=== PATIENT | male | born 1950 | race Caucasian/White ===

== ENCOUNTER 2017-10-01 10:23 | Outpatient (CLI) | payer MEDICARE ==
--- NOTE | 2017-10-01 11:18 | CT ---
CT PULMONARY LUNG SCAN: Date: 10/01/17 HISTORY: Nicotine dependence. Abnormality seen on x-ray. COMPARISON: Radiograph from 2016. FINDINGS: Lung screening specific (Lung-RADS): No suspicious pulmonary nodules requiring follow-up or immediat e action. Potentially significant incidentals (Lung-RADS Category S): No abnormalities requiring urgent additi onal evaluation. Pulmonary incidentals: There are scattered, sub-4 mm, pulmonary nodules. No pneumothorax. No effusio n. Other incidentals: There is moderate coronary arterial calcification of coronary arteries. No signif icant pericardial effusion. Upper abdomen evaluation limited due to extensive noise. Likely an old injury of the posterior right 4th rib with extensive periosteal new bone formation whic h appears chronic with remodeling. No thoracic spine compression fracture. There is a chronic appearing superior end plate compression d eformity at T4. IMPRESSION: 1. Lung-RADS Category 2: Benign appearance or behavior. A follow-up screening CT in 12 months recom mended. 2. Lung-RADS Category S: Negative. No new or significant potentially significant incidental finding s requiring urgent additional evaluation. POS: RUBINA
== END 2017-10-01 10:24 | disposition home or self-care (01) ==
LOC: CT 10:23
PROVIDERS: ATTEND Internal Medicine Sleep Medicine
DX: Z87.891 Personal history of nicotine dependence (principal)
CPT/HCPCS: G0297

== ENCOUNTER 2018-03-31 14:34 | Outpatient (CLI) | payer OTHER | END 2018-03-31 14:35 | disposition home or self-care (01) | LOC: DTY/OP 14:34 | PROVIDERS: ATTEND Surgery | DX: E66.01 Morbid (severe) obesity due to excess calories (principal) | CPT/HCPCS: 97802 ==

== ENCOUNTER 2018-04-14 00:15 | Outpatient (CLI) | payer MEDICARE ==
[2018-04-14 09:52] LABS: #Basophils 0.1 thou/uL (0.0-0.2); #Eosinphils 0.1 thou/uL (0.0-0.7); #Lymphocytes 2.6 thou/uL (1.20-3.40); #Monocytes 0.7 thou/uL (0.11-0.59); %Basophils 1.1 % (0.0-1.0); %Eosinophils 1.9 % (0.0-10.0); %Lymphocytes 34.7 % (21.0-51.0); %Monocytes 9.1 % (0.0-10.0); %Neutrophils 53.2 % (42.0-75.0); Mean Corpuscular HGB CONC 32.4 g/dL (32.0-36.0); Mean Corpuscular Hemoglobin 31.1 pg (27.0-31.0); Mean Platelet Volume 10.4 fL (7.4-10.4); Platelet Count 171 thou/uL (130-400); RBC Distribution Width 12.5 % (11.5-14.5); Red Blood Cell (RBC) Count 4.84 mill/uL (4.70-6.10); White Blood Cell (WBC) Count 7.5 thou/uL (4.8-10.8)
[2018-04-14 10:03] LABS: Hemoglobin A1c 8.9 % (4.0-6.0)
[2018-04-14 10:26] LABS: ALT (SGPT) 23 U/L (8-55); AST (SGOT) 14 U/L (5-34); Albumin 4.1 g/dL (3.4-4.8); Alkaline Phosphatase 76 U/L (40-150); Anion Gap 12 mmol/L (10-20); BUN (Urea Nitrogen) 30 mg/dL (8.4-25.7); Bilirubin, Direct 0.2 mg/dL (0.1-0.3); Bilirubin, Total 0.6 mg/dL (0.2-1.2); Calc. Creatinine Clearance 0 mL/min (70-130); Calcium 9.9 mg/dL (7.8-10.44); Carbon Dioxide 26 mmol/L (23-31); Chloride 102 mmol/L (98-107); Estimated GFR-MDRD 57; Globulin 2.9 g/dL (2.4-3.5); Glucose 197 mg/dL (80-115); Potassium 4.3 mmol/L (3.5-5.1); Sodium 136 mmol/L (136-145)
--- NOTE | 2018-04-14 10:51 | RAD ---
CHEST 2 VIEWS: HISTORY: PREOPERATIVE EXAM. COMPARISON: None. FINDINGS: Normal cardiac silhouette. The pulmonary vessels and hilum are normal. Costophrenic angles are javier r. Chronic changes, without consolidation or mass. No pneumothorax or osseous abnormalities. IMPRESSION: No acute cardiopulmonary process. POS: CET
== END 2018-04-14 00:16 | disposition home or self-care (01) ==
LOC: LABBT 00:15
PROVIDERS: ATTEND Surgery
DX: Z01.818 Encounter for other preprocedural examination (principal); E11.9 Type 2 diabetes mellitus without complications; I10 Essential (primary) hypertension; G47.30 Sleep apnea, unspecified
CPT/HCPCS: 71046; 80053; 80076; 83036; 85025; 93005; 93010

== ENCOUNTER 2018-04-14 08:00 | Inpatient (IN) | payer MEDICARE ==
[2018-04-14 08:34] VITALS: BMI 44.6
[2018-04-19] MEDS ORDERED: Heparin 5,000 UNITS/ML VIAL ONE (06:10)
[2018-04-19] MEDS ORDERED: Fentanyl 100 MCG/2 ML VIAL ONE ×4 (06:19→10:25)
[2018-04-19] MEDS ORDERED: Bupivacaine/Epinephrine 0.25% 30 ML VIAL ONE (07:06)
[2018-04-19] MEDS ORDERED: SUGAMMADEX SODIUM 500 MG/5 ML VIAL ONE (09:35)
[2018-04-19] MEDS ORDERED: Ondansetron HCl/PF 4 MG/2 ML Vial IVP PRN (10:03)
[2018-04-19] MEDS ORDERED: Promethazine HCl 25 MG/ML VIAL SLOW IVP PRN (10:03)
[2018-04-19] MEDS ORDERED: diphenhydrAMINE 50 MG/ML VIAL IM PRN (10:03)
[2018-04-19] MEDS ORDERED: Zolpidem Tartrate 5 MG TAB PO PRN (10:03)
[2018-04-19] MEDS ORDERED: diphenhydrAMINE 50 MG/ML VIAL IVP PRN ×2 (10:03→12:46)
[2018-04-19] MEDS ORDERED: fentaNYL Citrate/PF 2,000 MCG in Sodium Chloride 0.9% 60 ML IV PRN (10:03)
[2018-04-19] MEDS ORDERED: diphenhydrAMINE 25 MG CAP PO PRN (10:03)
[2018-04-19] MEDS ORDERED: Naloxone HCl 0.4 mg/ml Vial IV PRN (10:03)
[2018-04-19] MEDS ORDERED: Promethazine HCl 25 MG/ML VIAL IM PRN ×3 (10:03→12:46)
[2018-04-19] MEDS ORDERED: Morphine Sulfate 2 MG/ML SYRINGE SLOW IVP PRN (10:03)
[2018-04-19] MEDS ORDERED: Communication Order-Pharmacy FS SCH (10:15)
--- NOTE | 2018-04-19 11:41 | OP ---
DATE OF PROCEDURE: 04/19/2018 PREOPERATIVE DIAGNOSES: 1. Morbid obesity with a body mass index of 40. 2. Essential hypertension. 3. Obstructive sleep apnea. 4. Diabetes mellitus, type 2, on insulin. 5. Gastroesophageal reflux disease. POSTOPERATIVE DIAGNOSES: 1. Morbid obesity with a body mass index of 40. 2. Essential hypertension. 3. Obstructive sleep apnea. 4. Diabetes mellitus, type 2, on insulin. 5. Gastroesophageal reflux disease. PROCEDURES PERFORMED: 1. Laparoscopic sleeve gastrectomy with [place] staple line reinforcements and 38-[place] bougie. 2. Esophagogastroduodenoscopy. ANESTHESIA: General. ESTIMATED BLOOD LOSS: Minimal. COMPLICATIONS: None. FINDINGS: Normal postop EGD. DESCRIPTION OF PROCEDURE: The patient was taken to the operating room and laid supine on the table. After general anesthetic was obtained, the arms and legs were double strapped to bariatric table. The abdomen was shaved, prepped, and draped in a sterile fashion. Left subcostal 5 mm Optiview trocar was placed in usual fashion and high-flow pneumoperitoneum was obtained. There were multiple intraabdominal adhesions, so two ports were placed along the left lateral abdomen and these adhesions were taken down to facilitate placement of the other port. No injury to any intraabdominal structures. This was mostly sharp dissection of the scar tissue. So, two 12 mm ports were able to be placed in the upper abdomen and a 5 mm right subcostal port. A 5 mm incision was made at the xiphoid and Lyubov was used to raise the liver off the GE junction. The short gastrics were taken down in the mid body of stomach to left jimi of diaphragm. Left jimi, fundus of the stomach, and angle of His were completely dissected. Short gastrics were taken down to a distance of 5 cm proximal to the pylorus. OG tube was removed and 38 bougie was brought in and tip left in the antrum of the stomach. Multiple loads of the [place] stapling device used to perform the sleeve. The first was fired up at a distance 6 cm proximal to the pylorus, angled up towards the incisura. Multiple loads were then fired up along the bougie. Stomach was completely transected at the angle of His. Stomach was removed from the left abdominal incision. This fascial defect was closed using GraNee needle and 0 Vicryl tie. No bleeding on the staple line. The bougie was removed and then EGD scope was passed through esophagus, stomach, to the level of duodenum without obstruction. There was no stricture at the incisura. The EGD scope was used to decompress the stomach, it was pulled and removed. All port sites were infiltrated using local anesthetic. The other 12 mm port was closed using GraNee needle and 0 Vicryl tie as well. No intraabdominal bleeding. No damage to any intraabdominal structures. Lyubov was removed under direct visualization. Pneumoperitoneum was let down. The Vicryl was used to close the fascial defect for the 12 mm port sites. The incisions were irrigated and closed using 4-0 Monocryl and Dermabond. The patient was then returned to Recovery in stable condition. All instrument counts, needle counts, and lap counts are correct. Job ID: [id number]
[2018-04-19] MEDS ORDERED: Ondansetron PF 4 MG/2 ML Vial ONE (12:39)
[2018-04-19] MEDS ORDERED: Rocuronium Bromide 10 MG/ML (10ML VIAL) ONE (12:39)
[2018-04-19] MEDS ORDERED: ePHEDrine 50 MG/ML VIAL ONE (12:39)
[2018-04-19] MEDS ORDERED: Lidocaine 1% PF 5 ML VIAL ONE (12:39)
[2018-04-19] MEDS ORDERED: PROPOFOL 200 MG/20 ML VIAL ONE (12:39)
[2018-04-19] MEDS ORDERED: Hydrocodone-Acetamin 15 ML UDCUP PO PRN (12:46)
[2018-04-19] MEDS ORDERED: hydrALAZINE 20 MG/ML VIAL SLOW IVP PRN (12:46)
[2018-04-19] MEDS ORDERED: Dextrose 50% Abboject 50 ML SYRINGE SLOW IVP PRN (12:46)
[2018-04-19] MEDS ORDERED: Dextrose 5% in Water 1,000 ML IV PRN (12:46)
[2018-04-19] MEDS ORDERED: Ondansetron PF 4 MG/2 ML Vial IVP PRN (12:46)
[2018-04-19] MEDS: Sodium Chloride 0.9% 1,000 ML IV SCH (17:00)
[2018-04-19] MEDS: Ondansetron PF 4 MG/2 ML Vial IVP PRN (17:21)
[2018-04-19] MEDS: HumaLOG 300 UNITS/3 ML VIAL SC PRN (18:07)
[2018-04-19] MEDS: Acetaminophen 1,000 MG in Premix Bag 1 BAG IVPB SCH ×2 (19:39→20:08)
[2018-04-19] MEDS: Amlodipine 5 MG TAB PO SCH (20:10)
[2018-04-19] MEDS ORDERED: Spironolactone 25 MG TAB PO SCH (21:00)
[2018-04-20] MEDS: Sodium Chloride 0.9% 1,000 ML IV SCH (00:40)
[2018-04-20] MEDS: Acetaminophen 1,000 MG in Premix Bag 1 BAG IVPB SCH ×2 (01:36→08:46)
[2018-04-20 05:53] LABS: #Basophils 0.1 thou/uL (0.0-0.2); #Lymphocytes 1.8 thou/uL (1.20-3.40); #Monocytes 0.7 thou/uL (0.11-0.59); #Neutrophils 5.4 thou/uL (1.40-6.50); %Basophils 0.6 % (0.0-1.0); %Eosinophils 0.2 % (0.0-10.0); %Monocytes 9.3 % (0.0-10.0); %Neutrophils 67.8 % (42.0-75.0); Hemoglobin 13.4 g/dL (14.0-18.0); Mean Corpuscular HGB CONC 32.7 g/dL (32.0-36.0); Mean Corpuscular Hemoglobin 32.4 pg (27.0-31.0); Mean Corpuscular Volume 99.3 fL (78.0-98.0); Mean Platelet Volume 10.9 fL (7.4-10.4); Platelet Count 145 thou/uL (130-400); RBC Distribution Width 12.2 % (11.5-14.5); Red Blood Cell (RBC) Count 4.13 mill/uL (4.70-6.10)
[2018-04-20 06:11] LABS: Anion Gap 13 mmol/L (10-20); BUN (Urea Nitrogen) 20 mg/dL (8.4-25.7); Calc. Creatinine Clearance 109 mL/min (70-130); Calcium 9.3 mg/dL (7.8-10.44); Carbon Dioxide 28 mmol/L (23-31); Chloride 104 mmol/L (98-107); Estimated GFR-MDRD 64; Glucose 225 mg/dL (80-115); Potassium 4.2 mmol/L (3.5-5.1); Sodium 141 mmol/L (136-145)
[2018-04-20] MEDS: Ondansetron PF 4 MG/2 ML Vial IVP PRN (08:46)
[2018-04-20] MEDS: Amlodipine 5 MG TAB PO SCH (08:47)
[2018-04-20] MEDS ORDERED: Non-Formulary Item 1 EACH (Losartan Potassium [Losartan Potassium] 100 MG) PO SCH (09:00)
[2018-04-20] MEDS ORDERED: Pantoprazole 40 MG VIAL IVP SCH (09:00)
[2018-04-20] MEDS ORDERED: Losartan 25 MG TAB PO SCH (09:00)
[2018-04-20] MEDS ORDERED: Sodium Chloride 0.9% 1,000 ML IV SCH (09:21)
[2018-04-20] MEDS ORDERED: Acetaminophen 1,000 MG in Premix Bag 1 BAG IVPB PRN (09:21)
[2018-04-20] MEDS ORDERED: Acetaminophen 650 MG/20.3 ML UDCUP PO PRN (09:57)
[2018-04-20] MEDS: HumaLOG 300 UNITS/3 ML VIAL SC PRN (12:07)
[2018-04-20 15:46] VITALS: BP 131/70; TEMP 97.2
--- NOTE | 2018-04-20 16:20 | DIS ---
DATE OF ADMISSION: 04/19/2018 DATE OF DISCHARGE: 04/20/2018 ADMITTING DIAGNOSES: 1. Morbid obesity. 2. Sleep apnea. 3. Diabetes mellitus. 4. Hypertension. DISCHARGE DIAGNOSES: 1. Morbid obesity. 2. Sleep apnea. 3. Diabetes mellitus. 4. Hypertension. PROCEDURES PERFORMED: Laparoscopic sleeve by Dr. Nunez without complication. CONDITION ON DISCHARGE: Improved. STAFF: Jorge Luis Nunez MD HOSPITAL COURSE: On postop day #1, the patient had initially had some nausea, however, that improved throughout the day, especially after his [employer] was discontinued. In the afternoon, he is doing well. He is tolerating the clears. He is ambulating. He has minimal pain. He was discharged home. Job ID: [id number]
== END 2018-04-20 19:45 | disposition home or self-care (01) | DRG 621 ==
LOC: SURG A 04-19 05:55
PROVIDERS: ADMIT Surgery; ATTEND Surgery
PROC: 0DB64Z3 Excision of Stomach, Percutaneous Endoscopic Approach, Vertical (ICD-10-PCS; principal; 2018-04-19)
PROC: 0DJ08ZZ Inspection of Upper Intestinal Tract, Via Natural or Artificial Opening Endoscopic (ICD-10-PCS; 2018-04-19)
DX: E66.01 Morbid (severe) obesity due to excess calories (principal); E11.9 Type 2 diabetes mellitus without complications; I10 Essential (primary) hypertension; G47.33 Obstructive sleep apnea (adult) (pediatric); K21.9 Gastro-esophageal reflux disease without esophagitis; Z68.41 Body mass index [BMI] 40.0-44.9, adult
CPT/HCPCS: 36415; 36416; 80048; 85025; 88307; 88312; C9113; J0131; J1644; J2001; J2405; J2704; J3010; J3490; J7050

== ENCOUNTER 2018-11-23 19:30 | Outpatient (CLI) | payer MEDICARE | END 2018-11-23 19:31 | disposition home or self-care (01) | LOC: SLEEPLAB 19:30 | PROVIDERS: ATTEND Family Medicine | DX: G47.33 Obstructive sleep apnea (adult) (pediatric) (principal); E11.9 Type 2 diabetes mellitus without complications; I10 Essential (primary) hypertension | CPT/HCPCS: 95810 ==

== ENCOUNTER 2019-02-17 10:50 | Outpatient (CLI) | payer MEDICARE ==
--- NOTE | 2019-02-17 11:27 | ULT ---
ULTRASOUND SOFT TISSUE ABDOMINAL WALL: History: Abdominal wall mass. Comparison: None.. Findings: There is echogenic appearance of the mesh from the prior ventral hernia repair. No abnormal mass is a ppreciated. Impression: No abnormal mass appreciated. Follow-up CT abdomen and pelvis with contrast may be beneficial if clin ically warranted. Transcribed Date/Time: 02/17/2019 11:55 AM
== END 2019-02-17 10:51 | disposition home or self-care (01) ==
LOC: SCSULT 10:50
PROVIDERS: ATTEND Family Medicine
DX: R19.00 Intra-abdominal and pelvic swelling, mass and lump, unspecified site (principal)
CPT/HCPCS: 76705

== ENCOUNTER 2020-11-07 19:00 | Outpatient (CLI) | payer MEDICARE | END 2020-11-07 19:01 | disposition home or self-care (01) | LOC: SLEEPLAB 19:00 | PROVIDERS: ATTEND Family Medicine | DX: G47.33 Obstructive sleep apnea (adult) (pediatric) (principal); G47.10 Hypersomnia, unspecified; R06.83 Snoring; E66.9 Obesity, unspecified; Z68.32 Body mass index [BMI] 32.0-32.9, adult | CPT/HCPCS: 95811 ==

== ENCOUNTER 2022-01-22 09:24 | Outpatient (CLI) | payer MEDICARE, OTHER | END 2022-01-22 09:25 | disposition home or self-care (01) | LOC: SCSRAD 09:24 | PROVIDERS: ATTEND Family Medicine | DX: R07.9 Chest pain, unspecified (principal); R06.02 Shortness of breath; M54.6 Pain in thoracic spine; M54.50 Low back pain, unspecified; M47.816 Spondylosis without myelopathy or radiculopathy, lumbar region; M47.814 Spondylosis without myelopathy or radiculopathy, thoracic region | CPT/HCPCS: 71046; 72072; 72100 ==

== ENCOUNTER 2024-02-07 15:32 | Outpatient (CLI) | payer OTHER | END 2024-02-07 15:33 | disposition home or self-care (01) | LOC: ULT 15:32 | PROVIDERS: ATTEND Family Medicine | DX: M79.604 Pain in right leg (principal); I82.401 Acute embolism and thrombosis of unspecified deep veins of right lower extremity; R06.02 Shortness of breath ==

== ENCOUNTER 2024-02-07 17:12 | Inpatient (IN) | payer OTHER ==
[2024-02-07 17:55] LABS: #Basophils 0.06 10x3/uL (0.0-0.2); %Basophils 0.9 % (0.0-1.0); %Eosinophils 2.4 % (0.0-10.0); %Lymphocytes 29.9 % (21.0-51.0); %Neutrophils 59.2 % (42.0-75.0); Hematocrit 34.4 % (42.0-52.0); Hemoglobin 11.4 g/dL (14.0-18.0); Mean Corpuscular HGB CONC 33.1 g/dL (32.0-36.0); Mean Corpuscular Hemoglobin 31.3 pg (27.0-31.0); Mean Corpuscular Volume 94.5 fL (78.0-98.0); Mean Platelet Volume 11.9 fL (7.4-10.4); Platelet Count 224 10x3/uL (130-400); RBC Distribution Width 12.5 % (11.5-14.5); Red Blood Cell (RBC) Count 3.64 mill/uL (4.70-6.10)
[2024-02-07] MEDS ORDERED: Ketorolac Tromethamine 30 MG (1 mL) VIAL ONE (17:56)
[2024-02-07 18:09] LABS: ALT (SGPT) 14 U/L (8-55); AST (SGOT) 16 U/L (5-34); Albumin 3.7 g/dL (3.4-4.8); Alkaline Phosphatase 79 U/L (40-110); Anion Gap 13 mmol/L (10-20); BUN (Urea Nitrogen) 25 mg/dL (8.4-25.7); Bilirubin, Total 0.4 mg/dL (0.2-1.2); Calc. Creatinine Clearance 0 mL/min (70-130); Calcium 9.8 mg/dL (7.8-10.44); Carbon Dioxide 26 mmol/L (23-31); Chloride 105 mmol/L (98-107); Estimated GFR 62; Globulin 2.8 g/dL (2.4-3.5); Glucose 259 mg/dL (83-110); Magnesium 1.5 mg/dL (1.6-2.6); Potassium 4.4 mmol/L (3.5-5.1); Protein, Total 6.5 g/dL (5.8-8.1); Sodium 140 mmol/L (136-145)
[2024-02-07 18:11] LABS: Prothrombin Time 13.1 sec (12.0-14.7)
[2024-02-07 18:16] LABS: Troponin I Less than 0.010 ng/mL (< 0.028)
[2024-02-07] MEDS ORDERED: Heparin 5,000 UNITS/ML VIAL ONE (18:36)
[2024-02-07] MEDS ORDERED: Heparin 25,000 units/D5W 500 ML ONE (18:37)
[2024-02-07] MEDS ORDERED: Dextrose 5% in Water 1,000 ML IV PRN (20:29)
[2024-02-07] MEDS ORDERED: Glucagon 1 MG/ML KIT IM PRN (20:29)
[2024-02-07] MEDS ORDERED: Dextrose 50% Abboject 50 ML SYRINGE SLOW IVP PRN (20:29)
[2024-02-07] MEDS ORDERED: Insulin Lispro 100 UNIT/ML 10 ML VIAL SC PRN ×2 (20:29)
[2024-02-07] MEDS ORDERED: Heparin 10,000 UNITS/ 10 ML VIAL SLOW IVP SCH (20:45)
[2024-02-07] MEDS ORDERED: Heparin 25,000 units/D5W 500 ML IVPB SCH (20:45)
[2024-02-07 20:49] VITALS: BMI 34.1
[2024-02-07] MEDS: Acetaminophen 325 MG TAB PO PRN (21:32)
[2024-02-07] MEDS: Magnesium 2 GM/50 ML(in water) 2 GM in Premix 1 BAG IVPB SCH (22:26)
[2024-02-07] MEDS: traMADol HCl 50 MG TAB PO PRN (23:46)
[2024-02-08 01:31] LABS: PTT 227.4 sec (22.9-36.1)
[2024-02-08 04:30] LABS: #Basophils 0.06 10x3/uL (0.0-0.2); %Basophils 1.1 % (0.0-1.0); %Eosinophils 3.8 % (0.0-10.0); %Lymphocytes 40.9 % (21.0-51.0); %Monocytes 7.2 % (0.0-10.0); %Neutrophils 46.5 % (42.0-75.0); Hemoglobin 10.3 g/dL (14.0-18.0); Mean Corpuscular HGB CONC 33.2 g/dL (32.0-36.0); Mean Corpuscular Hemoglobin 31.5 pg (27.0-31.0); Mean Corpuscular Volume 94.8 fL (78.0-98.0); Mean Platelet Volume 12.5 fL (7.4-10.4); Platelet Count 180 10x3/uL (130-400); RBC Distribution Width 12.8 % (11.5-14.5); Red Blood Cell (RBC) Count 3.27 mill/uL (4.70-6.10)
[2024-02-08 04:47] LABS: Anion Gap 12 mmol/L (10-20); BUN (Urea Nitrogen) 21 mg/dL (8.4-25.7); Calc. Creatinine Clearance 92 mL/min (70-130); Calcium 9.3 mg/dL (7.8-10.44); Carbon Dioxide 24 mmol/L (23-31); Chloride 109 mmol/L (98-107); Estimated GFR 85; Glucose 139 mg/dL (83-110); Magnesium 1.8 mg/dL (1.6-2.6); Potassium 3.9 mmol/L (3.5-5.1); Sodium 141 mmol/L (136-145)
[2024-02-08 11:07] VITALS: TEMP 98.2
[2024-02-08] MEDS ORDERED: Non-Formulary Item 1 EACH (Esomeprazole Magnesium [Nexium Oral Suspension] 40 MG Suspdr.P PO SCH (12:09)
[2024-02-08] MEDS: Insulin Glargine 30 UNITS/0.3 ML VIAL SC SCH (12:50)
[2024-02-08] MEDS: Pantoprazole DR 40 MG TAB PO SCH (12:51)
[2024-02-08] MEDS: Non-Formulary Item 1 EACH (Insulin Glargine,Hum.Rec.Anlog [Lantus Solostar] 100 UNIT/ML P SQ SCH (13:54)
[2024-02-08] MEDS: Apixaban 5 MG TAB PO SCH (16:07)
[2024-02-08 16:20] VITALS: BP 118/63
[2024-02-08] MEDS ORDERED: Fenofibrate Nanocrystallized 145 MG TAB PO SCH (21:00)
[2024-02-08] MEDS ORDERED: Rosuvastatin 20 MG TAB PO SCH (21:00)
[2024-02-08] MEDS ORDERED: FENOFIBRATE MICRONIZED 134 MG PO SCH (21:00)
[2024-02-09] MEDS ORDERED: Pantoprazole DR 40 MG TAB PO SCH (09:00)
[2024-02-09] MEDS ORDERED: Insulin Glargine 30 UNITS/0.3 ML VIAL SC SCH (09:00)
[2024-02-09] MEDS ORDERED: Non-Formulary Item 1 EACH (Rosuvastatin Calcium [Rosuvastatin Calcium] 40 MG Tablet) PO SCH (09:00)
== END 2024-02-08 16:28 | disposition home or self-care (01) | DRG 299 ==
LOC: ERS 17:12 → OBSVTOIN 20:30 → 2NO 20:30
PROVIDERS: ADMIT Internal Medicine; ATTEND Internal Medicine
DX: I82.401 Acute embolism and thrombosis of unspecified deep veins of right lower extremity (principal); I26.99 Other pulmonary embolism without acute cor pulmonale; E78.5 Hyperlipidemia, unspecified; E66.01 Morbid (severe) obesity due to excess calories; G47.33 Obstructive sleep apnea (adult) (pediatric); N18.9 Chronic kidney disease, unspecified; I12.9 Hypertensive chronic kidney disease with stage 1 through stage 4 chronic kidney disease, or unspecified chronic kidney disease; E11.22 Type 2 diabetes mellitus with diabetic chronic kidney disease; Z88.8 Allergy status to other drugs, medicaments and biological substances; Z79.84 Long term (current) use of oral hypoglycemic drugs; Z79.899 Other long term (current) drug therapy; Z87.891 Personal history of nicotine dependence; E83.42 Hypomagnesemia; Z79.4 Long term (current) use of insulin
CPT/HCPCS: 36415; 36416; 71275; 80048; 80053; 83605; 83735; 83880; 84484; 85025; 85610; 85730; 93005; 93306; 96374; 96375; J1644; J1815; J1885; J3475

== ENCOUNTER 2024-10-10 15:21 | Outpatient (CLI) | payer OTHER | END 2024-10-10 15:22 | disposition home or self-care (01) | LOC: SCSRAD 15:21 | PROVIDERS: ATTEND Family Medicine | DX: S46.012A Strain of muscle(s) and tendon(s) of the rotator cuff of left shoulder, initial encounter (principal) ==